=== PATIENT | male | born 1945 | race Caucasian/White ===

== ENCOUNTER → 2021-09-14 08:40 | Outpatient (CLI) | payer MEDICARE, SELFPAY | PROVIDERS: Family Provider Internal Medicine; PCP Family Medicine; Referring Provider Specialist; Visit Provider Specialist | DX: N40.0 Benign prostatic hyperplasia without lower urinary tract symptoms (principal); R97.20 Elevated prostate specific antigen [PSA] | CPT/HCPCS: 36415; 84153; 99214 ==

== ENCOUNTER → 2022-01-19 15:55 | Outpatient (CLI) | payer MEDICARE, SELFPAY ==
--- NOTE | 2022-01-19 15:57 | DI.MRI.S_ITS ---
PROCEDURE: MR PELIS WO/W CON INDICATIONS: Prostate CA TECHNIQUE: Coronal HASTE, axial T1 FSE with fat saturation, 3-plane nonbreath-hold T2 FSE. After the administration of contrast, dynamic axial, delayed axial and coronal VIBE or 2-D FLASH with fat saturation through the pelvis. Optional diffusion weighted imaging and ADC may be performed. COMPARISON: None. FINDINGS: Image quality: Diffusion weighted and dynamic contrast enhanced images are diagnostic. Prostate: 4.6 x 5.5 x 4 1 cm, for a volume of 54 cc Right basal transitional zone and anterior fibromuscular stroma lesion (4/9) measuring 3 x 2.5 cm. T2 score 5. DWI score 5. DCE + There is a bit of bulging of the capsule in this region, which may be seen with micro capsular involvement. Pi-RADS 5. Bilateral peripheral zone mid gland ill-defined lesions measuring about 1.9 x 1.1 cm on the left and 2.0 x 0.9 cm on the right, extending into the apex. (/). DWI 3. T2 score 3. DCE +. Pi-RADS 4. Genitourinary system: There is some bladder trabeculation. No hydronephrosis. Bowel and peritoneum: No bowel obstruction. No pathologic ascites. Nodes and vessels: Prominent lymph nodes are indeterminate. None are enlarged by size criteria. Soft tissues: No inguinal hernias. Bones: No overtly enhancing bone lesion. IMPRESSION: PI-RADS 4 in 5 lesions as described above. Dictated by: Samson Gramajo M.D. on 01/20/2022 at 12:13 Approved by: Samson Gramajo M.D. on 01/20/2022 at 12:23
== END ==
PROVIDERS: Family Provider Internal Medicine; PCP Family Medicine; Referring Provider Specialist; Visit Provider Specialist
DX: C61 Malignant neoplasm of prostate (principal); R97.20 Elevated prostate specific antigen [PSA]
CPT/HCPCS: 72197; A9579

== ENCOUNTER → 2022-03-01 08:37 | Outpatient (CLI) | payer MEDICARE, SELFPAY ==
[2022-03-01 12:35] LABS: Prostate Specific Antigen 10.5 ng/mL (0.10-4.00)
== END ==
PROVIDERS: Family Provider Internal Medicine; PCP Family Medicine; Referring Provider Specialist; Visit Provider Specialist
DX: C61 Malignant neoplasm of prostate (principal); R97.20 Elevated prostate specific antigen [PSA]
CPT/HCPCS: 36415; 84153; 99215